=== PATIENT | female | born 1960 | race Caucasian/White ===

== ENCOUNTER 2018-08-09 23:11 | Observation (INO) | payer OTHER ==
[~2018-08-09] VITALS: Ht 157.5 cm; Wt 76.9 kg
[~2018-08-09 23:11] MED LIST: AZITHROMYCIN500 MG PO; FLOVENT DISKUS50 MCG; FLUOXETINE HCL40 MG PO; NABUMETONE750 MG PO; NEXIUM40 MG PO; PREDNISONE20 MG PO; REGLAN5 MG PO; SIMVASTATIN40 MG PO; TIROSINT25 MCG PO
--- OUTSIDE RECORDS SUMMARY | 2018-08-09 23:14 | XMS REPORT | Summary of Care ---
Author Author SYLVESTER ROSEN Organization Unknown Address [facility] Phone Unavailable Care Team Providers Care Beef Cattle Farmer Name Role Phone SYLVESTER ROSEN Unavailable Unavailable ERNA WANG Unavailable Unavailable SHWETA Penny, SCOTT Unavailable Unavailable ZARINA HERNANDEZ [place], AMADA SARGENT Unavailable Unavailable ZARINA Penny, AMADA Kennedy Unavailable Unavailable Unavailable Functional Status Name Dates Details Functional status health issues are not documented Status: Name Dates Details Cognitive status health issues are not documented Status: Problems Name Dates Details Rhinitis (472.0, J31.0) Status: Active History of Diverticulosis (562.10, K57.90) Status: Resolved History of dysthymia (V11.8, Z86.59) Status: Resolved Right ear pain (388.70, H92.01) Status: Active Skin tag (701.9, L91.8) Status: Active Acute recurrent sinusitis (461.9, J01.91) Status: Active Stomatitis (528.00, K12.1) Status: Active Seborrheic keratosis (702.19, L82.1) Status: Active Acute urinary tract infection (599.0, N39.0) Status: Active UTI symptoms (788.99, R39.9) Status: Active Bunion, left (727.1, M21.612) Status: Active Arthritis (716.90, M19.90) Status: Active Viral URI with cough (465.9, J06.9) Status: Active Acute pharyngitis (462, J02.9) Status: Active Allergic sinusitis (477.9, J30.9) Status: Active Acquired hypothyroidism (244.9, E03.9) Status: Active SANA (obstructive sleep apnea) (327.23, G47.33) Status: Active Pain of right eyelid (379.91, H02.89) Status: Active Headache (784.0, R51) Status: Active Right knee pain (719.46, M25.561) Status: Active Allergic bronchitis (493.90, J45.909) Status: Active Insomnia (780.52, G47.00) Status: Active Myalgia (729.1, M79.1) Status: Active GERD (gastroesophageal reflux disease) (530.81, K21.9) Status: Active Status post bunionectomy (V45.89, Z98.890) Status: Active Acid reflux disease (530.81, K21.9) Status: Active Generalized osteoarthritis of multiple sites (715.09, M15.9) Status: Active Anxiety disorder (300.00, F41.9) Status: Active Hyperlipidemia (272.4, E78.5) Status: Active Hypothyroidism (244.9, E03.9) Status: Active Folliculitis (704.8, L73.9) Status: Active Nonspecific findings on examination of urine (791.9, R82.90) Status: Active Allergic rhinitis, seasonal (477.9, J30.2) Status: Active Acute upper respiratory infection (465.9, J06.9) Status: Active Medications Name Dates Details Levothyroxine Sodium 25 MCG Oral Tablet TAKE 1 TABLET BY MOUTH EVERY DAY Quantity: 90 RENATO P.A., ERNA * Start : 24-Dec-2013 Active Esomeprazole Magnesium 40 MG Oral Capsule Delayed Release TAKE 1 CAPSULE BY MOUTH EVERY DAY * Quantity: 30 Refills: 5 RENATO P.A.CASSIAERNA * Start : 29-Mar-2014 Active Simvastatin 40 MG Oral Tablet TAKE ONE TABLET BY MOUTH DAILY * Quantity: 90 Refills: 1 RENATO P.A.CASSIAERNA * Start : 08-Nov-2013 Active Multi-Day Vitamins TABS TAKE 1 TABLET DAILY. * Refills: 0 Active Calcium + D TABS 2 daily - one in am and one in pm chewable * Refills: 0 Active Probiotic CAPS USE DIRECTED. * Refills: 0 Active Fluticasone Propionate 50 MCG/ACT Nasal Suspension SPRAY 2 SPRAYS IN EACH NOSTRIL DAILY * Quantity: 1 Refills: 5 RENATO P.A.CASSIAERNA * Start : 18-Sep-2013 Active 9.9 ML Bottle Biotin TABS TAKE 1 TABLET DAILY * Refills: 0 Active LamoTRIgine 150 MG Oral Tablet TAKE ONE TABLET BY MOUTH EVERY DAY * Quantity: 90 Refills: 1 SCOTT ROCK M.D. * Start : 25-Dec-2014 Active Montelukast Sodium 10 MG Oral Tablet TAKE ONE TABLET BY MOUTH ONCE DAILY * Quantity: 90 Refills: 3 RENATO P.A.CASSIAERNA * Start : 25-Dec-2014 Active Levocetirizine Dihydrochloride 5 MG Oral Tablet TAKE 1 TABLET BY MOUTH DAILY NEEDED * Quantity: 90 Refills: 3 RENATO Raygoza.A.CASSIAERNA * Start : 11-Aug-2015 Active Vitamin D 2000 UNIT Oral Tablet * Refills: 0 Active Vitamin C 100 MG Oral Tablet * Refills: 0 Active Fish Oil Provencal-3 CAPS * Refills: 0 Active Sinus Congestion/Pain Severe TABS TAKE 1 TABLET DAILY * Refills: 0 Active Tylenol Arthritis Ext Relief 650 MG TBCR TAKE 1 TABLET 4 TIMES DAILY NEEDED. * Refills: 0 Active Melatonin 1 MG Oral Tablet TAKE 1 TABLET DAILY PRN * Refills: 0 Active Azelastine HCl - 0.1 % Nasal Solution USE 1 TO 2 SPRAYS IN EACH NOSTRIL TWICE DAILY NEEDED * Quantity: 1 Refills: 5 RENATO P.A., ERNA * Start : 25-Jan-2017 Active 30 ML Bottle Celecoxib 100 MG Oral Capsule TAKE 1 CAPSULE BY MOUTH TWICE DAILY * Quantity: 60 Refills: 0 RENATO P.A. ERNA * Start : 29-Nov-2017 Active Clotrimazole-Betamethasone 1-0.05 % External Cream APPLY AND RUB IN A THIN FILM TO AFFECTED AREAS TWICE DAILY.(AM AND PM). * Quantity: 1 Refills: 2 RENATO P.A.CASSIAERNA * Start : 20-Oct-2017 Active 45 GM Tube Azithromycin 250 MG Oral Tablet TAKE 2 TABLETS ON DAY 1 THEN TAKE 1 TABLET A DAY FOR 4 DAYS. * Quantity: 1 Refills: 0 RICE P.A., SYLVESTER * Start : 21-Dec-2017 Active 6 Tablet Box PredniSONE 10 MG Oral Tablet take 3 po x 3 days then 2 po x3 days then 1 po x 3 days * Quantity: 18 Refills: 0 RICE P.A., SYLVESTER * Start : 21-Dec-2017 Active MethylPREDNISolone Acetate 80 MG/ML Injection Suspension INJECT 80 MG Intramuscular * Quantity: 0 Refills: 0 RICE P.A., SYLVESTER * Start : 21-Dec-2017 Admin Requested Allergies and Adverse Reactions Name Dates Details Aspirin TABS (Allergy) Status: Active Past Medical History Name Dates Details Acid reflux disease (530.81, K21.9) Status: Active Acquired hypothyroidism (244.9, E03.9) Status: Active Hyperlipidemia (272.4, E78.5) Status: Active Insomnia (780.52, G47.00) Status: Active History of allergic rhinitis (V12.69, Z87.09) Status: Resolved History of allergy (V15.09, Z88.9) Status: Resolved History of Anxiety (300.00, F41.9) Status: Resolved History of bursitis (V13.59, Z87.39) Status: Resolved History of Cough (786.2, R05) Status: Resolved History of Diverticulosis (562.10, K57.90) Status: Resolved History of dysthymia (V11.8, Z86.59) Status: Resolved History of Endometriosis (617.9, N80.9) Status: Resolved History of esophageal reflux (V12.79, Z87.19) Status: Resolved History of gastritis (V12.79, Z87.19) Status: Resolved History of hematuria (V13.09, Z87.448) Status: Resolved History of Influenza vaccine needed (V04.81, Z23) Status: Resolved History of Other and unspecified ovarian cysts (620.2, N83.20) Status: Resolved History of Rectal polyp (569.0, K62.1) Status: Resolved History of senile atrophic vaginitis (V13.29, Z87.42) Status: Resolved History of Skin candidiasis (112.3, B37.2) Status: Resolved History of urinary tract infection (V13.02, Z87.440) Status: Resolved History of UTI symptoms (788.99, R39.9) Status: Resolved History of vaginal bleeding (V13.29, Z87.42) Status: Resolved History of vaginitis (V13.29, Z87.42) Status: Resolved History of viral gastroenteritis (V12.09, Z86.19) Status: Resolved History of weakness (V13.89, Z87.898) Status: Resolved Procedures Procedure Dates Details History of Tonsillectomy Completed History of Hemorrhoidectomy Completed Immunization Name Dates Details Influenza on: Jun-2011 Fluzone INJ Lot #: [id number] on: 10-Jul-2013 Fluzone INJ Lot #: [id number] on: 09-Aug-2014 Fluzone Quadrivalent 0.5 ML Intramuscular Suspension Prefilled Syringe on: 04-Jul-2017 Influenza Comments: Approx [id number] Family History Name Dates Details Family history of Colon Cancer (V16.0) Comments: Family History Status: Active Family history of Heart Disease (V17.49) Comments: Family History Status: Active Name Dates Details Family history of Colon Cancer (V16.0) Status: Active Name Dates Details Family history of malignant neoplasm of cervix uteri (V16.49, Z80.49) Status: Active Name Dates Details Family history of Heart Disease (V17.49) Status: Active Name Dates Details Family history of Heart Disease (V17.49) Status: Active Name Dates Details Family history of Breast Cancer (V16.3) Status: Active Name Dates Details Family history of Liver Cancer Status: Active Social History Name Dates Details - Status: Name Dates Details Never smoker Vital Signs Date Test Result Details 21-Dec-20178:02 BP Systolic 126 mm[Hg] Status: Comments: Location: LUE; Position: Sitting BP Diastolic 76 mm[Hg] Status: Comments: Location: LUE; Position: Sitting Height 62 in Status: Weight 167.375 lb Status: Body Mass Index Calculated 30.61 kg/m2 Status: Body Surface Area Calculated 1.77 m2 Status: Temperature 97.2 f Status: Comments: Method: Temporal Heart Rate 82 /min Status: Respiration Rate 16 /min Status: Results Date Description Value Details Results not documented Plan of Care Name Dates Details Planned Observations Planned Goals not documented Planned Medications MethylPREDNISolone Acetate 80 MG/ML Injection Suspension Ordered: 21-Dec-2017 Held Interventions Provided Medication Changes* Azithromycin 250 MG Oral Tablet - Start * PredniSONE 10 MG Oral Tablet - Start Instructions* Patient Specific Education Given; Done: 21 Dec 2017 Instructions Name Dates Details Instructions not documented Encounters Appointment; KAT DANIEL D.O. Encounter Diagnosis: Problem not documented On: 22-Dec-2015 12:45 Appointment; JESUS GRANT NP Encounter Diagnosis: Problem not documented On: 14-Jan-2016 17:30 Appointment; ERNA GROSS P.A. Encounter Diagnosis: Problem not documented On: 02-Mar-2016 10:30 Appointment; JESUS GRANT NP Encounter Diagnosis: Problem not documented On: 18-May-2016 16:00 Appointment; ERNA GROSS P.A. Encounter Diagnosis: Problem not documented On: 22-Jun-2016 8:00 Appointment; SYLVESTER RICE P.A. Encounter Diagnosis: Problem not documented On: 27-Aug-2016 11:00 Appointment; AMADA SRINIVASAN M.D. Encounter Diagnosis: Problem not documented On: 10-Sep-2016 13:30 Appointment; JESUS GRANT NP Encounter Diagnosis: Problem not documented On: 24-Sep-2016 13:00 Appointment; TANA MAY M.D. Encounter Diagnosis: Problem not documented On: 18-Oct-2016 9:45 Appointment; TANA MAY M.D. Encounter Diagnosis: Problem not documented On: 11-Nov-2016 7:00 Appointment; TANA MAY M.D. Encounter Diagnosis: Problem not documented On: 26-Nov-2016 8:30 Appointment; TANA MAY M.D. Encounter Diagnosis: Problem not documented On: 03-Dec-2016 9:45 Appointment; TANA MAY M.D. Encounter Diagnosis: Problem not documented On: 10-Dec-2016 9:45 Appointment; TANA MAY M.D. Encounter Diagnosis: Problem not documented On: 24-Dec-2016 9:45 Appointment; SYLVESTER RICE P.A. Encounter Diagnosis: Problem not documented On: 03-Jan-2017 9:30 Appointment; TANA MAY M.D. Encounter Diagnosis: Problem not documented On: 21-Jan-2017 9:45 Appointment; JESUS GRANT NP Encounter Diagnosis: Problem not documented On: 25-Jan-2017 18:30 Appointment; SCOTT ROCK M.D. Encounter Diagnosis: Problem not documented On: 01-Feb-2017 14:15 Appointment; CHANA GODOY NP Encounter Diagnosis: Problem not documented On: 16-Mar-2017 7:45 Appointment; TANA MAY M.D. Encounter Diagnosis: Problem not documented On: 18-Mar-2017 10:15 Appointment; ERNA GROSS P.A. Encounter Diagnosis: Problem not documented On: 11-Apr-2017 8:15 Appointment; TANA MAY M.D. Encounter Diagnosis: Problem not documented On: 15-Apr-2017 14:45 Appointment; SYLVESTER RICE P.A. Encounter Diagnosis: Problem not documented On: 05-Jul-2017 9:30 Appointment; SCOTT ROCK M.D. Encounter Diagnosis: Problem not documented On: 15-Jul-2017 13:30 Appointment; TANA MAY M.D. Encounter Diagnosis: Problem not documented On: 17-Aug-2017 15:30 Appointment; ERNA GROSS P.A. Encounter Diagnosis: Problem not documented On: 31-Aug-2017 11:15 Appointment; TANA MAY M.D. Encounter Diagnosis: Problem not documented On: 06-Sep-2017 9:00 Appointment; TANA MAY M.D. Encounter Diagnosis: Problem not documented On: 16-Sep-2017 16:00 Appointment; TANA MAY M.D. Encounter Diagnosis: Problem not documented On: 21-Sep-2017 10:15 Appointment; TANA MAY M.D. Encounter Diagnosis: Problem not documented On: 14-Oct-2017 10:15 Appointment; ERNA GROSS P.A. Encounter Diagnosis: Problem not documented On: 20-Oct-2017 16:00 Appointment; TNAA MAY M.D. Encounter Diagnosis: Problem not documented On: 21-Oct-2017 16:00 Appointment; TANA MAY M.D. Encounter Diagnosis: Problem not documented On: 18-Nov-2017 15:00 Appointment; SYLVESTER RICE P.A. Encounter Diagnosis: Problem not documented On: 21-Dec-2017 7:45
[2018-08-09] MEDS ORDERED: ACETAMINOPHEN 325 MG TAB PO ONE (23:30)
[2018-08-09] MEDS ORDERED: ASPIRIN 81 MG CHEW TAB PO ONE (23:30)
[2018-08-09] MEDS ORDERED: NITROGLYCERIN 2% OINT 1 GM PKT TOP ONE (23:30)
[2018-08-09 23:43] LABS: BASOPHILS # (AUTO) 0.1 (0.0-0.1); BASOPHILS % 0.5 % (0.0-1.0); EOSINOPHILS # (AUTO) 0.1 (0.0-0.4); EOSINOPHILS % 1.3 % (0.0-6.0); HEMATOCRIT 45.1 % (34.2-44.1); HEMOGLOBIN 14.6 g/dL (12.0-16.0); LYMPHOCYTES # (AUTO) 4.5 (1.0-3.2); MEAN CORPUSCULAR HEMOGLOBIN 30.9 pg (28-32); MEAN CORPUSCULAR HGB CONC 32.4 g/dL (31-35); MEAN CORPUSCULAR VOLUME 95.6 fL (81-99); MONOCYTES # (AUTO) 0.7 (0.2-0.8); MONOCYTES % 7.6 % (4.4-11.3); NEUTROPHILS # (AUTO) 4.3 (2.1-6.9); NEUTROPHILS % 44.2 % (38.7-80.0); PLATELET COUNT 369 x10e3/uL (140-360); RED BLOOD COUNT 4.72 x10e6/uL (3.6-5.1); RED CELL DISTRIBUTION WIDTH 11.6 % (11.7-14.4)
[2018-08-09 23:46] LABS: CLARITY,URINE CLEAR (CLEAR); COLOR,URINE YELLOW (YELLOW)
[2018-08-09 23:47] LABS: BACTERIA,URINE RARE /HPF; BILIRUBIN,URINE NEGATIVE (NEGATIVE); EPITHELIAL CELLS,URINE FEW /LPF; KETONES,URINE NEGATIVE (NEGATIVE); LEUKOCYTE ESTERASE ,URINE 1+ (NEGATIVE); NITRITE,URINE NEGATIVE (NEGATIVE); PROTEIN,URINE DIPSTICK NEGATIVE (NEGATIVE); RBC,URINE 0-5 /HPF (0-5); URINE UROBILINOGEN 0.2 mg/dL (0.2 - 1)
[2018-08-10] VITALS (9 sets, daily range): BP systolic 123–164; BP diastolic 62–94
[2018-08-10 00:02] LABS: ALANINE AMINOTRANSFERASE 23 IU/L (0-55); ALBUMIN 4.5 g/dL (3.5-5.0); ALBUMIN/GLOBULIN RATIO 1.3 (0.8-2.0); ALKALINE PHOSPHATASE 94 IU/L (40-150); ANION GAP 13.8 mmol/L (8-16); BLOOD UREA NITROGEN 14 mg/dL (7-26); BUN/CREATININE RATIO 16 (6-25); CALCIUM 10.6 mg/dL (8.4-10.2); CARBON DIOXIDE 29 mmol/L (22-29); CHLORIDE 101 mmol/L (98-107); CREATINE KINASE 107 IU/L (29-168); CREATININE, SERUM 0.87 mg/dL (0.57-1.11); EST GLOMERULAR FILTRATION RATE > 60 ML/MIN (60-); GLUCOSE 104 mg/dL (74-118); POTASSIUM 3.8 mmol/L (3.5-5.1); SODIUM 140 mmol/L (136-145)
--- NOTE | 2018-08-10 00:08 | Diagnostic Imaging Report ---
EXAMINATION: CHEST SINGLE (PORTABLE) INDICATION: Chest pain COMPARISON: None FINDINGS: AP view TUBES and LINES: None. LUNGS: Lungs are well inflated. Left basilar atelectasis or scarring. There is no evidence of pneumonia or pulmonary edema. PLEURA: No pleural effusion or pneumothorax. HEART AND MEDIASTINUM: The cardiomediastinal silhouette is unremarkable. BONES AND SOFT TISSUES: No acute osseous lesion. Soft tissues are unremarkable. UPPER ABDOMEN: No free air under the diaphragm. IMPRESSION: No acute thoracic abnormality. Signed by: DR. Deshawn Mead MD on 08/10/2018 12:03 AM
[2018-08-10] MEDS ORDERED: ONDANSETRON HCL INJ 2 MG/ML VIAL IV PRN (00:45)
[2018-08-10] MEDS ORDERED: METOPROLOL TARTRATE INJ 1 MG/ML VIAL IV ONE (00:45)
[2018-08-10] MEDS ORDERED: ASPIRIN 81 MG CHEW TAB PO ONE (00:45)
[2018-08-10] MEDS ORDERED: SODIUM CHLORIDE FLUSH 10 ML SYR INJ PRN (00:45)
[2018-08-10] MEDS ORDERED: FAMOTIDINE 20 MG TAB PO SCH (00:45)
--- OUTSIDE RECORDS SUMMARY | 2018-08-10 00:56 | XMS REPORT ---
Author Author [facility] Address Unknown Phone Unavailable Care Team Providers Care Sales Representative Metals Name Role Phone Itzel SAHH Unavailable Unavailable Problems This patient has no known problems. Allergies, Adverse Reactions, Alerts This patient has no known allergies or adverse reactions. Medications This patient has no known medications. Results Test Description Test Time Test Comments Text Results Atomic Results Result Comments CHEST SINGLE (PORTABLE) 2018-08-10 00:02:00 [place] [address] Patient Name: TY ACUNA MR #: [id number] : 1960 Age/Sex: 58/F Req #: [id number] Adm Physician: Ordered by: TRISTAN SHAH MD Report #: [id number] Location: ER Room/Bed: Procedure: [id number] DX/CHEST SINGLE (PORTABLE) Exam Date: 08/09/18 Exam Time: 2335 REPORT STATUS: Signed EXAMINATION: CHEST SINGLE (PORTABLE) INDICATION: Chest pain COMPARISON: None FINDINGS: AP view TUBES and LINES: None. LUNGS: Lungs are well inflated. Left basilar atelectasis or scarring. There is no evidence of pneumonia or pulmonary edema. PLEURA: No pleural effusion or pneumothorax. HEART AND MEDIASTINUM: The cardiomediastinal silhouette is unremarkable. BONES AND SOFT TISSUES: No acute osseous lesion. Soft tissues are unremarkable. UPPER ABDOMEN: No free air under the diaphragm. IMPRESSION: No acute thoracic abnormality. Signed by: DR. Deshawn Mead MD on 08/10/2018 12:03 AM Dictated By: DESHAWN MEAD MD 0003 Transcribed By: LENCHO on 08/10/182 COPY TO: TRISTAN SHAH MD
[2018-08-10] MEDS ORDERED: NITROFURANTOIN MACROCRYSTALS 100 MG CAP ONE (01:00)
[2018-08-10] MEDS: NITROFURANTOIN MACROCRYSTALS 100 MG CAP PO SCH ×3 (01:03→17:22)
[2018-08-10] MEDS ORDERED: AZELASTINE137 MCG/0. INH (01:21)
[2018-08-10] MEDS ORDERED: VITAMIN D2400 UNIT PO (01:21)
[2018-08-10] MEDS ORDERED: PROBIOTIC DIGE1 EACH PO (01:21)
[2018-08-10] MEDS ORDERED: MONTELUKAST SOD10 MG PO (01:21)
[2018-08-10] MEDS ORDERED: LEVOCETIRIZINE D5 MG PO (01:21)
[2018-08-10] MEDS ORDERED: CELEBREX100 MG PO (01:21)
[2018-08-10] MEDS ORDERED: VITAMIN C500 M1 PO (01:21)
[2018-08-10] MEDS ORDERED: MULTI-VITAMIN1 EACH PO (01:21)
[2018-08-10] MEDS ORDERED: LAMOTRIGINE100 MG PO (01:23)
[2018-08-10] MEDS: MORPHINE SULFATE 2 MG/ML SYR IV PRN ×2 (02:42→05:44)
[2018-08-10] MEDS: NITROGLYCERIN 2% OINT 1 GM PKT TOP SCH ×3 (03:03→17:17)
[2018-08-10] MEDS: LEVOTHYROXINE SODIUM 25 MCG TABLET PO SCH (05:00)
[2018-08-10] MEDS: PANTOPRAZOLE SOD 40 MG TABEC PO SCH (05:35)
[2018-08-10] MEDS: FAMOTIDINE 20 MG TAB PO SCH ×2 (05:35→21:00)
[2018-08-10] MEDS: LORATADINE 10 MG TAB PO SCH (08:29)
[2018-08-10] MEDS: CELECOXIB 100 MG CAP PO SCH ×2 (08:29→17:22)
[2018-08-10] MEDS: ASPIRIN 81 MG ENTERIC COATED PO SCH (08:29)
[2018-08-10] MEDS: LAMOTRIGINE 100 MG TAB PO SCH ×2 (08:29→17:22)
[2018-08-10] MEDS: MULTIVITAMINS/MINERALS TAB PO SCH (08:29)
[2018-08-10] MEDS: MONTELUKAST SODIUM 10 MG TAB PO SCH (08:29)
[2018-08-10] MEDS: METOPROLOL TARTRATE 25 MG TAB PO SCH ×2 (08:29→17:22)
[2018-08-10] MEDS: LACTOBACILLUS ACIDOPHILUS CAPSULE PO SCH (08:29)
[2018-08-10] MEDS: ASCORBIC ACID 500 MG TAB PO SCH (08:29)
[2018-08-10] MEDS: AZELASTINE HCL 137 MCG NASAL SPRAY NS SCH (08:57)
[2018-08-10] MEDS: CHOLECALCIFEROL 400 UNIT TAB PO SCH (08:58)
[2018-08-10] MEDS: SIMVASTATIN 40 MG TAB PO SCH (08:58)
--- NOTE | 2018-08-10 15:26 | Cardiology Report ---
DATE OF STUDY: ATTENDING PHYSICIAN: Dr. Gilberto Villalpando. ECHOCARDIOGRAM M-MODE: Normal chamber wall dimensions. Normal contractility. Normal mitral aortic valves. No pericardial effusion. SECTOR SCAN: Normal chamber wall dimensions. Normal mitral aortic and tricuspid valves. No pericardial effusion. CARDIAC DOPPLER STUDY WITH COLOR: Trace mitral tricuspid regurgitation. CONCLUSIONS 1. Top normal left ventricular wall thickness with ejection fraction of approximately 55%. 2. Trace mitral tricuspid regurgitation, probably not clinically significant. Job#: [id number] SUB cc:DR. GILBERTO VILLALPANDO
[2018-08-10 17:31] LABS: CREATINE KINASE 54 IU/L (29-168)
[2018-08-10] MEDS: NAPROXEN 250 MG TAB PO PRN (17:43)
--- NOTE | 2018-08-10 17:45 | History and Physical ---
CLINICAL HISTORY: This is a 58-year-old white woman admitted via the emergency room to Dr. Armenta because of pleuritic chest pains. Approximately 2 months ago, she had chest pressure and went to see Dr. Stephen Harris's physician commercial lending assistant, who did EKG that was unremarkable and sent her to a library monitor. Echocardiogram and stress testing was ordered; however, the patient did not have money to pay the copay and therefore, the test apparently was not done. On the day of admission around 9 a.m. while sitting down she developed severe chest pain rated 6 on a scale of 10, which persisted causing her to present to the emergency room. Chest x-ray and EKG was unremarkable. Echocardiogram was unremarkable. She is being admitted for further evaluation and treatment. PAST MEDICAL HISTORY: Remarkable for anxiety, depression, hypothyroidism, hyperlipidemia, reflux esophagitis, and severe allergies. MEDICATIONS: She is taking azelastine 137 mcg spry, Celebrex, Nexium 40 mg, lactobacillus, lamotrigine 100 mg tablet twice a day, levocetirizine 5 mg p.o. daily, levothyroxine 25 mcg daily, montelukast 10 mg p.o. daily, simvastatin 40 mg daily. PERSONAL AND SOCIAL HISTORY: She denies smoking or drinking. She works as a sales ledger clerk. FAMILY HISTORY: Both parents from myocardial infarction. Mother had bypass surgery. Brother and sister from alcoholism and other brother from car accident. REVIEW OF SYSTEMS: Remarkable for absence of nausea, vomiting, shortness of breath, diaphoresis. No syncope. She does have some radiation pain to the back as well as to the neck. PHYSICAL EXAMINATION GENERAL: She is alert and coherent. VITAL SIGNS: Stable. CARDIOVASCULAR: Jugular veins are not distended. S1, S2 were regular. There no appreciable murmur. LUNGS: Clear. ABDOMEN: Clear. Bowel sounds are present. EXTREMITIES: No cyanosis, clubbing, or edema. LABORATORY STUDIES: As mentioned above. The white count is 9600, hemoglobin 14.6, platelet count 269,000. Electrolytes are normal. Creatinine was 0.8. IMPRESSION 1. Pleuritic chest pains radiating to the back and to the neck, probably not ischemic in nature. 2. Hyperlipidemia. 3. Family history of coronary artery disease. 4. Anxiety/depression. 5. Multiple allergies. 6. Reflux esophagitis. 7. Hypothyroidism. RECOMMENDATIONS: Rule out myocardial infarction. Stress testing is negative. Nonsteroidal and anti-inflammatory medications. She is already taking Celebrex. CT scan of the chest, sed rate, ARNALDO. Thank you very much. Job#: [id number] LJ cc:DR. FREEMAN ARMENTA cc:DR. STEPHEN HARRIS
[2018-08-10 18:10] LABS: FREE THYROXINE INDEX 2.3451 (1.4-3.8); THYROID STIMULATING HORMONE 0.417 uIU/mL (0.350-4.940)
--- NOTE | 2018-08-10 19:34 | Diagnostic Imaging Report ---
EXAM: CT Chest WITH contrast 08/10/2018 1:57 PM INDICATION: Chest pain COMPARISON: None TECHNIQUE: Chest was scanned utilizing a multidetector helical scanner from the lung apex through the level of the adrenal glands without administration of IV contrast. Coronal and sagittal reformations were obtained. PE protocol was performed. IV CONTRAST: 100 mL of Isovue-370 COMPLICATIONS: None RADIATION DOSE: Total DLP: 499.11 mGy*cm Estimated effective dose: (DLP x 0.014 x size factor) mSv CTDIvol has been reviewed. It is below the limits set by the Radiation Protocol Committee (RPC). FINDINGS: LINES/ TUBES: None. LUNGS AND AIRWAYS: No filling defects in the pulmonary arteries to the level of the segmental pulmonary arteries. Scattered atelectasis in the right middle, lingula, and lower lobes. No consolidations. Airways are normal. PLEURA: The pleural spaces are clear. HEART AND MEDIASTINUM: The thyroid gland is normal. No mediastinal, hilar or axillary lymphadenopathy. Scattered nonspecific subcentimeter mediastinal lymph nodes. The heart is normal in size.. There is no pericardial effusion. Main pulmonary artery measures 2.4 cm in diameter and descending aorta measures 3.2 cm in diameter, within normal limits. Coronary artery calcifications. UPPER ABDOMEN: Unremarkable. BONES: There are degenerative changes in the thoracic spine. SOFT TISSUES: Unremarkable. IMPRESSION: No pulmonary emboli or acute abnormalities. Signed by: DR. Deshawn Mead MD on 08/10/2018 7:31 PM
[2018-08-11] MEDS: NITROGLYCERIN 2% OINT 1 GM PKT TOP SCH ×4 (01:05→17:30)
[2018-08-11 04:00] VITALS: BP 112/65
[2018-08-11] MEDS: LEVOTHYROXINE SODIUM 25 MCG TABLET PO SCH (04:06)
[2018-08-11] MEDS ORDERED: SODIUM CHLORIDE 0.9% 50ML 50 ML ONE (06:18)
[2018-08-11] MEDS ORDERED: IOPAMIDOL 370 MG/ML 200 ML INFUS..BTL INJ ONE (06:18)
[2018-08-11 06:23] LABS: CHOL/HDL RATIO 2.6 (3.0-3.6)
[2018-08-11] MEDS: ACETAMINOPHEN 325 MG TAB PO PRN ×2 (07:12→17:00)
[2018-08-11] MEDS ORDERED: TRIMETHOPRIM/SULFAMETHOXAZOLE 160-800 MG TAB PO ONE (07:30)
[2018-08-11 08:00] VITALS: BP 113/66
[2018-08-11 09:00] VITALS: BP 113/66
[2018-08-11] MEDS: AZELASTINE HCL 137 MCG NASAL SPRAY NS SCH (10:12)
[2018-08-11] MEDS: METOPROLOL TARTRATE 25 MG TAB PO SCH ×2 (10:15→17:00)
[2018-08-11] MEDS: CELECOXIB 100 MG CAP PO SCH ×2 (10:18→17:00)
[2018-08-11] MEDS: LAMOTRIGINE 100 MG TAB PO SCH ×2 (10:18→17:00)
[2018-08-11] MEDS: ASPIRIN 81 MG ENTERIC COATED PO SCH (10:18)
[2018-08-11] MEDS: LORATADINE 10 MG TAB PO SCH (10:18)
[2018-08-11] MEDS: FAMOTIDINE 20 MG TAB PO SCH ×2 (10:19→21:09)
[2018-08-11] MEDS: PANTOPRAZOLE SOD 40 MG TABEC PO SCH (10:19)
[2018-08-11] MEDS: MULTIVITAMINS/MINERALS TAB PO SCH (10:19)
[2018-08-11] MEDS: LACTOBACILLUS ACIDOPHILUS CAPSULE PO SCH (10:19)
[2018-08-11] MEDS: MONTELUKAST SODIUM 10 MG TAB PO SCH (10:20)
[2018-08-11] MEDS: CHOLECALCIFEROL 400 UNIT TAB PO SCH (10:20)
[2018-08-11] MEDS: ASCORBIC ACID 500 MG TAB PO SCH (10:20)
[2018-08-11] MEDS: SIMVASTATIN 40 MG TAB PO SCH (10:20)
[2018-08-11 12:00] VITALS: BP 104/65
[2018-08-11] MEDS: MORPHINE SULFATE 2 MG/ML SYR IV PRN (14:50)
[2018-08-11 16:00] VITALS: BP 108/67
[2018-08-11 20:00] VITALS: BP 98/61
[2018-08-11] MEDS: TRIMETHOPRIM/SULFAMETHOXAZOLE 160-800 MG TAB PO SCH (21:08)
[2018-08-11] MEDS: NAPROXEN 250 MG TAB PO PRN (21:09)
[2018-08-12] VITALS: BP 99/56
[2018-08-12 04:00] VITALS: BP 90/50
[2018-08-12] MEDS: LEVOTHYROXINE SODIUM 25 MCG TABLET PO SCH (06:00)
[2018-08-12] MEDS: NITROGLYCERIN 2% OINT 1 GM PKT TOP SCH ×2 (06:00)
[2018-08-12 08:00] VITALS: BP 113/69
[2018-08-12] MEDS: TRIMETHOPRIM/SULFAMETHOXAZOLE 160-800 MG TAB PO SCH (09:15)
[2018-08-12] MEDS: METOPROLOL TARTRATE 25 MG TAB PO SCH (10:00)
[2018-08-12] MEDS: LACTOBACILLUS ACIDOPHILUS CAPSULE PO SCH (10:00)
[2018-08-12] MEDS: AZELASTINE HCL 137 MCG NASAL SPRAY NS SCH (10:00)
[2018-08-12] MEDS: PANTOPRAZOLE SOD 40 MG TABEC PO SCH (10:00)
[2018-08-12] MEDS: SIMVASTATIN 40 MG TAB PO SCH (10:00)
[2018-08-12] MEDS: CELECOXIB 100 MG CAP PO SCH (10:00)
[2018-08-12] MEDS: FAMOTIDINE 20 MG TAB PO SCH (10:00)
[2018-08-12] MEDS: MULTIVITAMINS/MINERALS TAB PO SCH (10:00)
[2018-08-12] MEDS: LAMOTRIGINE 100 MG TAB PO SCH (10:00)
[2018-08-12] MEDS: CHOLECALCIFEROL 400 UNIT TAB PO SCH (10:00)
[2018-08-12] MEDS: ASCORBIC ACID 500 MG TAB PO SCH (10:00)
[2018-08-12] MEDS: LORATADINE 10 MG TAB PO SCH (10:00)
[2018-08-12] MEDS: ASPIRIN 81 MG ENTERIC COATED PO SCH (10:00)
[2018-08-12] MEDS: MONTELUKAST SODIUM 10 MG TAB PO SCH (10:00)
[2018-08-12 11:00] VITALS: BP 113/69
[2018-08-12 11:15] LABS: AMYLASE 45 U/L (25-125); LIPASE 14 U/L (8-78)
--- NOTE | 2018-08-12 11:28 | Consultation ---
ATTENDING PHYSICIAN: Dr. Gilberto Armenta. REASON FOR CONSULTATION: Fever. Thank you Dr. Arriaga and Dr. Armenta for asking me to see this patient. HISTORY: The patient is a 58-year-old woman referred for fever. She was admitted through the emergency department with chest pain and acute urinary tract infection. She presented to the emergency department with acute onset of chest pain radiating to the back and neck after a meal. She did not have fever, chills, cough, shortness of breath, nausea, vomiting, diarrhea, abdominal pain, dysuria or urgency of urination. In the emergency department, she was noted to have temperature of 98.2 degrees Fahrenheit, pulse rate 111, and respiratory rate 17, blood pressure 181/116, and oxygen saturation 97% on room air. Initial laboratory studies showed blood leukocyte count of 9680 with 44.2% neutrophils, BUN 14, creatinine 0.87, and troponin 0.001. Chest x-ray showed no acute abnormality. Also the chest CT scan showed no pulmonary embolism or acute abnormality. The patient has had right elbow peripheral IV placed on August 09, 2018 at the emergency room. PAST MEDICAL HISTORY: Hyperlipidemia, hypothyroidism, gastroesophageal reflux disease, and anxiety and depression. PAST SURGICAL HISTORY: Deviated nasal septum correction and left foot bunion surgery. ALLERGIES: NO KNOWN DRUG ALLERGIES. MEDICATIONS: See MAR. The current antibiotic is Bactrim DS 1 p.o. twice a day. IMMUNIZATION: She received influenza vaccine about 2 weeks ago. FAMILY HISTORY: Significant for coronary artery disease in both parents. SOCIAL HISTORY: No alcohol or tobacco use. REVIEW OF SYSTEMS: As per history of present illness. PHYSICAL EXAMINATION GENERAL: No acute distress and does not appear toxic. VITAL SIGNS: T-max 100.1, pulse rate 85, respiratory rate 20, blood pressure 113/69, and weight 169 pounds. HEENT: Normocephalic. There is no icterus or injection of the conjunctivae. There is no ear or nasal discharge. Moist oral mucosa. No pharyngeal erythema or exudate. NECK: Supple. No meningismus or lymphadenopathy. LUNGS: Clear to auscultation bilaterally. HEART: Normal S1 and S2, regular. ABDOMEN: Normal bowel sounds in all quadrants. Soft and nontender. EXTREMITIES: There is no edema, clubbing, or cyanosis. SKIN: There is no acute erythema or rash. SANITARY ENGINEERING TEACHER: Awake, alert and oriented to person, place and time. Nonfocal. LABORATORY AND DIAGNOSTICS: August 09, 2018 WBC 9680, hemoglobin 14.6, platelets 369,000, neutrophils 44.2, lymphs 46, monos 7.6, eosinophils 1.3, and basophil 0.5. BUN 14, creatinine 0.87, AST 23, ALT 22, alk phos 94, and total bilirubin 0.8. Blood culture collected in the emergency department showed no growth. IMPRESSION 1. Fever is most likely due to phlebitis. 2. Chest pain. PLAN 1. Change peripheral IV or discontinue it, if no longer needed. 2. Stop Bactrim. 3. Check amylase and lipase. Job#: [id number] LJ FAJARDO
[2018-08-12 12:00] VITALS: BP 107/68
--- NOTE | 2018-08-13 05:32 | Discharge Summary ---
ATTENDING PHYSICIAN: Dr. Gilberto Armenta CLINICAL HISTORY: A 58-year-old white woman admitted via the emergency room because of pleuritic chest pain with the emergency physician doing a urine test showing a few white cells, but the patient denied any urinary symptoms. Please refer to my previous dictation concerning details of current illness, past medical history, personal and social history, family history, initial laboratory studies. HOSPITAL COURSE: The following day the patient had a temperature of 101.1 degrees. Her white count was normal initially, but did increase slightly. Infectious disease consultation was obtained with Dr. Dragan Adames who elected to stop the Bactrim fearing perhaps she has IV site related fever. The patient had an echocardiogram that was benign. CT scan of the chest was also benign, showing no evidence of pulmonary embolism. A stress test was ordered, but the patient declined to have it saying that she feels a little bit too weak. By this time it was the weekend and we could no longer do the stress test. She is however feeling better and wants to go home. We agreed that she can get her stress test done on an outpatient basis. She had no further fever and was monitored for an additional day with the blessing of the infectious disease consult and she was discharged to be followed further with her primary care physician. Because of the pleuritic nature of her chest pain, she was treated with naproxen which appears to have helped her. Her cardiac enzymes were negative. Her thyroid functions were negative. ARNALDO is pending. The ESR was slightly elevated at 21. She will follow up with Dr. Armenta's office where she already has an appointment to do a stress test. DISCHARGE DIAGNOSES 1. Possible pleurisy with pleuritic chest pains associated with low-grade fever with normal white count, with negative CT scan, negative echocardiogram, negative EKG, and negative enzymes. 2. Hyperlipidemia. 3. Family history of coronary artery disease. 4. History of anxiety and depression. 5. Sinusitis with chronic allergies. 6. Reflux esophagitis. 7. Hypothyroidism. She is discharged on the same medications as she presented. Job#: [id number] RTY cc:Gilberto Armenta MD
== END 2018-08-12 13:12 | disposition home or self-care (01) ==
LOC: ER 23:11 → ERHOLD 08-10 00:54 → INTOOBSV 08-10 00:54 → MED/SURG 08-10 01:43
PROVIDERS: ADMIT Internal Medicine; ATTEND Internal Medicine
DX: R07.89 Other chest pain (principal); N30.90 Cystitis, unspecified without hematuria; I10 Essential (primary) hypertension; E03.9 Hypothyroidism, unspecified; E78.5 Hyperlipidemia, unspecified; K21.0 Gastro-esophageal reflux disease with esophagitis; Z82.49 Family history of ischemic heart disease and other diseases of the circulatory system; R50.9 Fever, unspecified; F41.9 Anxiety disorder, unspecified; T80.1XXA Vascular complications following infusion, transfusion and therapeutic injection, initial encounter; Y84.8 Other medical procedures as the cause of abnormal reaction of the patient, or of later complication, without mention of misadventure at the time of the procedure; J30.9 Allergic rhinitis, unspecified
CPT/HCPCS: 36415 ×4; 71045; 71260; 80053; 80061; 81001; 82150; 82550 ×2; 82553 ×2; 83690; 84436; 84443; 84479; 84484 ×2; 85025; 85651; 86039; 87040; 87086; 93005; 93306; 96374; 99284; G0378 ×3; J2270 ×2; J2405; Q9967; S0164 ×3